=== PATIENT | male | born 1985 | race Caucasian/White ===

== ENCOUNTER 2017-07-18 18:54 | Emergency (ER) | payer OTHER ==
[2017-07-18 18:58] VITALS: BP 135/90; PULSE 109; TEMP 97.5; BMI 39.5
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
[2017-07-18] MEDS ORDERED: IBUPROFEN 600 MG TABLET (FP) PO ONE ×2 (19:25→19:32)
[2017-07-19] MEDS ORDERED: BACITRACIN/POLYMYXIN B SULFATE 15 GM TUBE TP ONE (19:25)
== END 2017-07-18 20:16 | disposition home or self-care (01) ==
LOC: FER 18:54
PROC: 2W3QX1Z Immobilization of Right Lower Leg using Splint (ICD-10-PCS; principal; 2017-07-18)
DX: S86.811A Strain of other muscle(s) and tendon(s) at lower leg level, right leg, initial encounter (principal); V43.62XA Car passenger injured in collision with other type car in traffic accident, initial encounter; Y93.89 Activity, other specified; Y92.9 Unspecified place or not applicable; E66.9 Obesity, unspecified; F17.210 Nicotine dependence, cigarettes, uncomplicated
CPT/HCPCS: 73560-TC-RT; 99282-25

== ENCOUNTER 2019-02-05 07:46 | Emergency (ER) | payer OTHER ==
[2019-02-05 07:55] VITALS: BP 136/83; PULSE 95; TEMP 98.2; BMI 39.5
[2019-02-05] MEDS ORDERED: IBUPROFEN 600 MG TABLET (FP) PO ONE ×2 (08:50→08:55)
--- NOTE | 2019-02-05 08:54 | PDOC ---
History of Present Illness - General Chief Complaint: Sore Throat Stated Complaint: SORE THROAT Time Seen by Provider: 02/05/19 08:44 History Source: Patient Exam Limitations: No Limitations - History of Present Illness Initial Comments: 02/05/19 08:51 33 year old male with no medical or surgical history presents with sorethroat x 2days. States getting worse with headaches, subjective fever and chills. Denies sick contact 02/05/19 09:07 Severity: reports: moderate Associated Symptoms: reports: fever/chills, sore throat Aspirin Received prior to arrival: Yes: no aspirin today Beta Liliana Contraindications(Core Measure): Yes: Not Prescribed Beta Liliana Given by EMS(Core Measure): No Beta Liliana Taken at Home(Core Measure): No Beta Liliana Not Indicated at this Time(Core Measure): No Past History - Travel Traveled outside of the country in the last 30 days: No - Past Medical History Allergies/Adverse Reactions: Allergies Allergy/AdvReac Type Severity Reaction Status Date / Time No Known Allergies Allergy Verified 02/05/19 07:52 Home Medications: Ambulatory Orders Cephalexin [Keflex] 500 mg PO BID #8 capsule 07/18/17 Ibuprofen [Motrin -] 600 mg PO TID #30 tablet 07/18/17 Penicillin V Potassium [Pen Vee K -] 500 mg PO TID #30 tablet 02/05/19 COPD: No GI Disorders: Yes (OBESITY) - Immunization History Td Vaccination: Yes TDAP Vaccination: Yes Immunization Up to Date: Yes - Suicide/Smoking/Psychosocial Hx Smoking History: Never smoked Number of Cigarettes Smoked Daily: 0 'Breaking Loose' booklet given: 07/18/17 Hx Alcohol Use: No Drug/Substance Use Hx: No Substance Use Type: Alcohol, Marijuana Respiratory Specific PMHX - Complaint Specific PMHX Angina: No Bronchitis: No Pneumonia: No Pulmonary Embolus: No TB (Tuberculosis): No Review of Systems - Review of Systems Able to Perform ROS?: Yes Is the patient limited Burkinan proficient: No Constitutional: Yes: Chills, Fever HEENTM: Yes: Difficulty Swallowing Respiratory: No: Cough, Shortness of Breath, Productive cough Cardiac (ROS): No: Chest Pain, Syncope ABD/GI: No: Nausea, Poor Appetite, Vomiting, Indigestion : No: Discharge Musculoskeletal: No: Back Pain Integumentary: No: Bruising, Erythema Neurological: No: Numbness, Paresthesia Psychiatric: No: Stressors *Physical Exam - Vital Signs Last Vital Signs Temp Pulse Resp BP Pulse Ox 98.2 F 95 H 16 136/83 98 02/05/19 07:52 02/05/19 07:52 02/05/19 07:52 02/05/19 07:52 02/05/19 07:52 - Physical Exam General Appearance: Yes: Nourished, Appropriately Dressed HEENT: positive: TMs Normal, Pharynx Normal, Muffled/Hoarse voice, Pharyngeal Erythema, Tonsillar Exudate, Tonsillar Erythema Neck: positive: Supple. negative: Lymphadenopathy (R), Lymphadenopathy (L) Respiratory/Chest: positive: Lungs Clear Cardiovascular: positive: Regular Rhythm, Regular Rate Neurologic: positive: information assurance analyst II-XII NML intact, Fully Oriented, Alert, Normal Mood/ Affect Moderate Sedation - Procedure Monitoring Vital Signs: Procedure Monitoring Vital Signs Temperature 98.2 F 02/05/19 07:52 Pulse Rate 95 H 02/05/19 07:52 Respiratory Rate 16 02/05/19 07:52 Blood Pressure 136/83 02/05/19 07:52 O2 Sat by Pulse Oximetry (%) 98 02/05/19 07:52 Medical Decision Making - Medical Decision Making 02/05/19 09:10 33 year old male with no medical or surgical history presents with sorethroat x 2 days Plan: throat culture rapid strep Rx: pen vk ibuprofen 02/05/19 18:29 strep negative *DC/Admit/Observation/Transfer Diagnosis at time of Disposition: Strep throat - Discharge Dispostion Disposition: HOME Condition at time of disposition: Good Decision to Admit order: No - Prescriptions Prescriptions: Penicillin V Potassium [Pen Vee K -] 500 mg PO TID #30 tablet - Referrals Referrals: Chuck Ortiz MD [Primary Care Provider] - - Patient Instructions Printed Discharge Instructions: Strep Throat Additional Instructions: May gargle with warm salt water Take medication until completely finished Do not share utensils with anyone. Return for worsening symptoms - Post Discharge Activity
== END 2019-02-05 09:18 | disposition home or self-care (01) ==
LOC: JERFT 07:46
DX: J02.0 Streptococcal pharyngitis (principal); B95.5 Unspecified streptococcus as the cause of diseases classified elsewhere
CPT/HCPCS: 87070; 87880; 99281-25

== ENCOUNTER 2019-02-06 09:33 | Emergency (ER) | payer OTHER ==
[2019-02-06 09:37] VITALS: BP 120/80; PULSE 102; TEMP 97.8; BMI 38.0
[2019-02-06] MEDS ORDERED: DEXAMETHASONE LIQUID 0.5 MG/5 ML 240 ML BULK BOTTLE PO ONE (10:48)
[2019-02-06] MEDS ORDERED: DEXAMETHASONE SOD PHOSPHATE 10 MG/1 ML VIAL ONE (10:54)
--- NOTE | 2019-02-06 11:19 | PDOC ---
History of Present Illness - General Chief Complaint: Revisit, Lab Variance Stated Complaint: REVISIT Time Seen by Provider: 02/06/19 10:38 History Source: Patient Exam Limitations: No Limitations - History of Present Illness Initial Comments: 02/06/19 11:17 33 y/o male with c/o continual difficulty swallowing and change in his voice. Pt denies fever, cough, difficulty breathing, or radiation of pain. Pt was seen here yesterday , tested - for strep and sent home with pen vk tabs. Pt states took 4-5 tablets with no improvement. Pt denies drooling, headache, or abd pain. Timing/Duration: getting worse Severity: moderate Associated Symptoms: reports: other Past History - Travel Traveled outside of the country in the last 30 days: No - Past Medical History Allergies/Adverse Reactions: Allergies Allergy/AdvReac Type Severity Reaction Status Date / Time No Known Allergies Allergy Verified 02/06/19 09:37 Home Medications: Ambulatory Orders NK [No Known Home Medication] 02/06/19 COPD: No GI Disorders: Yes (OBESITY) - Immunization History Td Vaccination: Yes TDAP Vaccination: Yes Immunization Up to Date: Yes - Suicide/Smoking/Psychosocial Hx Smoking History: Never smoked Number of Cigarettes Smoked Daily: 0 'Breaking Loose' booklet given: 07/18/17 Hx Alcohol Use: No Drug/Substance Use Hx: No Substance Use Type: Alcohol, Marijuana Patient Lives Alone: No Lives with/in: parents Review of Systems - Review of Systems Able to Perform ROS?: No Is the patient limited Italian proficient: No Constitutional: No: Chills, Fever, Loss of Appetite HEENTM: Yes: Throat Pain, Throat Swelling, Difficulty Swallowing Respiratory: No: Symptoms reported, Shortness of Breath Cardiac (ROS): No: Symptoms Reported ABD/GI: No: Symptoms Reported : No: Symptoms Reported Musculoskeletal: No: Symptoms Reported Integumentary: No: Symptoms Reported Neurological: No: Symptoms reported *Physical Exam - Vital Signs Last Vital Signs Temp Pulse Resp BP Pulse Ox 97.8 F 102 H 20 120/80 97 02/06/19 09:34 02/06/19 09:34 02/06/19 09:34 02/06/19 09:34 02/06/19 09:34 - Physical Exam General Appearance: Yes: Nourished, Appropriately Dressed. No: Apparent Distress HEENT: positive: TMs Normal, Muffled/Hoarse voice (mild garbled). negative: Pharynx Normal (4+ exudative tonsils with erythema, uvula midline, ), Pale Conjunctivae, Nasal Congestion, Rhinorrhea, Excessive drooling Neck: positive: Lymphadenopathy (R) (upper cervical ), Lymphadenopathy (L) ( upper cervical) Respiratory/Chest: positive: Lungs Clear, Normal Breath Sounds. negative: Respiratory Distress, Accessory Muscle Use Cardiovascular: positive: Regular Rhythm, Tachycardia Gastrointestinal/Abdominal: positive: Soft. negative: Tenderness Integumentary: positive: Normal Color, Warm, Moist Neurologic: positive: Motor Strength 5/5 (ambulatory) Moderate Sedation - Procedure Monitoring Vital Signs: Procedure Monitoring Vital Signs Temperature 97.8 F 02/06/19 09:34 Pulse Rate 102 H 02/06/19 09:34 Respiratory Rate 20 02/06/19 09:34 Blood Pressure 120/80 02/06/19 09:34 O2 Sat by Pulse Oximetry (%) 97 02/06/19 09:34 ED Treatment Course - LABORATORY CBC & Chemistry Diagram: 02/06/19 11:21 02/06/19 11:21 - RADIOLOGY Radiology Studies Ordered: Category Date Time Status SOFT TISSUE NECK CT WITH CONTR [CT] Stat CT Scan 02/06/19 11:12 Ordered - Medications Given in the ED: ED Medications Discontinued Medications Generic Name Dose Route Start Last Admin Trade Name Freq PRN Reason Stop Dose Admin Dexamethasone 10 mg 02/06/19 10:48 02/06/19 10:59 Decadron Liquid - PO 02/06/19 10:49 10 mg ONCE ONE Administration Medical Decision Making - Medical Decision Making 02/06/19 12:00 CC: pain w/ swallowing, worsening swelling despite - strep and p vk started yesterday. Exam: 4+ exudative tonsils w/ erythema Plan: decadron, repeat strep, if- will obtain labs and soft tissue neck CT 02/06/19 12:07 Laboratory Tests 02/06/19 10:50 Group A Strep Rapid Negative 02/06/19 12:09 Laboratory Tests 02/06/19 11:21 WBC 14.1 H Hgb 15.9 Hct 46.1 Absolute Neuts (auto) 8.9 H 02/06/19 14:38 Laboratory Tests 02/06/19 02/06/19 11:21 12:00 Sodium 139 Potassium 4.8 Chloride 104 Carbon Dioxide 28 Anion Gap 7 L BUN 13 Random Glucose 104 Lactic Acid 1.0 Calcium 9.4 AST 19 ALT 40 Alkaline Phosphatase 104 Pt ordered for IVF 1 liter and given po challenge which consists of crackers and water 02/06/19 14:40 CT shows slightly prominent palantine tonsils and mild prominence of the adenoid tissues. Mult mildly prominent homogeneous lymph nodes are seen along the jugular chains lasha as well as within the submandibular triangle lasha w a max short axis of 1.3 cm. 02/06/19 15:08 Pt speaking clearly and states diff swallowing symptoms resolved. pt tolerated crackers and water. Discharge home w/ clinda and prednisone *DC/Admit/Observation/Transfer Diagnosis at time of Disposition: Tonsillitis - Discharge Dispostion Disposition: HOME Condition at time of disposition: Improved - Referrals Referrals: Chuck Ortiz MD [Primary Care Provider] - - Patient Instructions Printed Discharge Instructions: DI for Pharyngitis/Tonsillopharyngitis -- Adult Additional Instructions: Take steroids starting tomorrow. Take antibiotic tonight but stop the antibiotic prescribed to you the other day. Stay well hydrated and eat soft foods. Return to ED if symptoms return or worsen - Post Discharge Activity
[2019-02-06 11:39] LABS: BASO % 0.7 % (0-2.0); HEMATOCRIT 46.1 % (35.4-49); HEMOGLOBIN 15.9 GM/dL (11.7-16.9); LYMPH % 24.4 % (8-40); MCH 31.2 pg (25.7-33.7); MCHC 34.4 g/dl (32.0-35.9); MEAN CELL VOLUME 90.8 fl (80-96); MEAN PLT VOLUME 7.4 fl (7.5-11.1); MONO % 9.6 % (3.8-10.2); NEUT % 63.3 % (42.8-82.8); PLATELET COUNT 363 K/MM3 (134-434); RBC 5.08 M/mm3 (4.00-5.60); RDW 13.9 % (11.9-15.9); WHITE BLOOD COUNT 14.1 K/mm3 (4.0-10.0)
[2019-02-06 12:07] LABS: ALBUMIN 3.6 g/dl (3.4-5.0); ALK PHOS 104 U/L (45-117); ANION GAP 7 MMOL/L (8-16); BILIRUBIN,TOTAL 0.2 mg/dL (0.2-1); BLOOD UREA NITROGEN 13 mg/dL (7-18); CALCIUM 9.4 mg/dL (8.5-10.1); CHLORIDE 104 mmol/L (98-107); CO2 28 mmol/L (21-32); CREATININE 0.9 mg/dL (0.55-1.3); GLUCOSE,RANDOM 104 mg/dL (74-106); POTASSIUM 4.8 mmol/L (3.5-5.1); SGOT/AST 19 U/L (15-37); SGPT/ALT 40 U/L (13-61); SODIUM 139 mmol/L (136-145); TOT PROT 7.6 g/dl (6.4-8.2)
[2019-02-06] MEDS ORDERED: CLINDAMYCIN 600MG PREMIX IVPB 600 MG/50 ML BAG IVPB ONE ×2 (12:12→12:15)
[2019-02-06] MEDS ORDERED: SODIUM CHLORIDE 1,000 ML IV STA (14:38)
== END 2019-02-06 15:58 | disposition home or self-care (01) ==
LOC: JERFT 09:33
PROC: 3E0337Z Introduction of Electrolytic and Water Balance Substance into Peripheral Vein, Percutaneous Approach (ICD-10-PCS; principal; 2019-02-06)
PROC: 3E03329 Introduction of Other Anti-infective into Peripheral Vein, Percutaneous Approach (ICD-10-PCS; 2019-02-06)
DX: J03.90 Acute tonsillitis, unspecified (principal)
CPT/HCPCS: 36415; 70491-TC; 80053; 83605; 85025; 87070; 87880; 96361; 96365; 99281-25; J7030

== ENCOUNTER 2023-09-23 22:00 | Emergency (ER) | payer OTHER ==
[2023-09-23 22:19] VITALS: BP 115/73; PULSE 82; RESP 18; TEMP 98; BMI 49.6
== END 2023-09-23 22:52 | disposition home or self-care (01) ==
LOC: JERFT 22:00
DX: S69.91XA Unspecified injury of right wrist, hand and finger(s), initial encounter (principal); X50.0XXA Overexertion from strenuous movement or load, initial encounter
CPT/HCPCS: 73130-TC-RT-FY; 99283-25

== ENCOUNTER 2024-01-20 09:09 | Emergency (ER) | payer OTHER ==
[2024-01-20 09:31] VITALS: BP 112/74; PULSE 101; RESP 18; TEMP 97.7; BMI 48.9
[2024-01-20] MEDS ORDERED: ONDANSETRON *ODT* 4 MG TABLET ONE (10:20)
[2024-01-20] MEDS: ONDANSETRON *ODT* 4 MG TABLET SL ONE (10:22)
== END 2024-01-20 11:03 | disposition home or self-care (01) ==
LOC: JERFT 09:09 → JER 09:09 → JERFT 11:03
DX: R19.7 Diarrhea, unspecified (principal); R11.2 Nausea with vomiting, unspecified; J10.1 Influenza due to other identified influenza virus with other respiratory manifestations; Z20.822 Contact with and (suspected) exposure to COVID-19
CPT/HCPCS: 0241U-QW; 99283-25; Q0162